=== PATIENT | male | born 1950 | race Caucasian/White ===

== ENCOUNTER 2016-12-07 06:45 | Outpatient (CLI) | payer MEDICARE, BC ==
[2016-12-07] VITALS (8 sets, daily range): BP systolic 98–137; BP diastolic 55–78
[~2016-12-07] VITALS: Ht 182.9 cm; Wt 117.5 kg
[~2016-12-07 06:45] MED LIST: AMLO10TA2 PO; BYSTOLIC10 MG PO; COLC0.6T34 PO; DEXL60CA PO; LOSA1TAB17 PO; RIVA20TA2 PO; SILD100T PO; TEST5GEL TP; TRAM50TA PO
[2016-12-07] MEDS ORDERED: FOLI1TAB16 PO (07:16)
[2016-12-07 07:37] LABS: BASO # 0.1 x10^3/uL (0.0-0.2); BASO % 1 % (0-3); EOS % 3 % (0-3); HEMATOCRIT 46.7 % (39.0-53.0); HEMOGLOBIN 15.4 g/dL (13.0-17.5); LYMPH # 1.7 x10^3/uL (1.0-4.8); LYMPH % 22 % (24-48); MEAN CORPUSCULAR HEMOGLOBIN 32 pg (25-35); MEAN CORPUSCULAR HGB CONC 33 g/dL (31-37); MEAN CORPUSCULAR VOLUME 98 fL (79-100); MONO % 9 % (0-9); NEUT % 65 % (31-73); PLATELET COUNT 268 x10^3/uL (140-400); RED BLOOD COUNT 4.79 x10^6/uL (4.30-5.70); RED CELL DISTRIBUTION WIDTH 14.4 % (11.5-14.5); WHITE BLOOD COUNT 7.9 x10^3/uL (4.0-11.0)
[2016-12-07 07:42] LABS: INR 1.1 (0.8-1.1); PROTHROMBIN TIME PATIENT 13.1 SEC (11.7-14.0)
[2016-12-07] MEDS ORDERED: LIDOCAINE 1%/EPI 1:100,000 20 ML VIAL. ONE (08:05)
[2016-12-07] MEDS ORDERED: VANCOMYCIN 1GM IVPB FOR OMNI 250 ML ONE (08:05)
[2016-12-07] MEDS ORDERED: HEPARIN PF 500 UNIT/5 ML DISP.SYRIN. IV ONE ×2 (08:05→09:00)
[2016-12-07] MEDS ORDERED: FENTANYL PF 250 MCG/5 ML VIAL. ONE (08:23)
[2016-12-07] MEDS ORDERED: MIDAZOLAM HCL/PF 5 MG/5 ML VIAL ONE (08:23)
[2016-12-07] MEDS ORDERED: CEFAZOLIN 1GM IVPB FOR OMNI 50 ML IV ONE ×2 (08:24→09:00)
[2016-12-07] MEDS ORDERED: MIDAZOLAM HCL/PF 5 MG/5 ML VIAL IV ONE (09:00)
[2016-12-07] MEDS ORDERED: VANCOMYCIN 1GM IVPB FOR OMNI 250 ML IRR ONE (09:00)
[2016-12-07] MEDS ORDERED: LIDOCAINE 1%/EPI 1:100,000 20 ML VIAL. IJ ONE (09:00)
[2016-12-07] MEDS ORDERED: FENTANYL PF 250 MCG/5 ML VIAL. IV ONE (09:00)
--- NOTE | 2016-12-07 09:07 | PDOC ---
MODERATE SEDATION ASSESSMENT RISKS/ALTERNATIVES Risks/Alternatives Risks and alternatives of this type of sedation and procedure discussed with: RISK/ALTERNATIVES: Patient H & P ON CHART H & P H & P on chart and reviewed for co-morbid conditions and appropriate labs. H&P ON CHART: Yes STATUS PREG STATUS ASSESSED: N/A MEDS/ALLERGIES REVIEWED Meds/Allergies Reviewed Medications and Allergies including time and route of recently administered narcotics and sedatives. MEDS/ALLERGIES REVIEWED: Yes ASA RATING ASA RATING: III AIRWAY ASSESSMENT Airway Assessment Airway patency, oral function limitations, presence of caps, crowns, dentures, partials, and ability to extend neck assessed. AIRWAY ASSESSMENT: Yes MALLAMPATI SCORE MALLAMPATI SCORE: II PRE-SEDATION ASSESSMENT PRE-SEDATION ASSESSMENT: Yes VICKIE LAM MD Dec 07, 2016 09:07
--- NOTE | 2016-12-07 09:09 | PDOC1 ---
History and Physical Date of Procedure Date of Admission 12/07/16 Procedure Procedure Image guided Power Port insertion Indication Indication Lung cancer---Power Port requested for chemotx Past Medical History Past Medical History See Nursing Pre Procedure PMH Past Surgical History Past Surgical History See Nursing Pre Procedure PSH Current Medications Current Medications Current Medications Heparin Sodium (Porcine) (Hep Lock Adult) 500 unit STK-MED ONCE IV ; Start 12/07 at 08:05; Stop 12/07/16 at 08:06; Status DC Lidocaine/ Epinephrine 20 ml 20 ml STK-MED ONCE .ROUTE ; Start 12/07/16 at 08:05 ; Stop 12/07/16 at 08:06; Status DC Heparin Sodium/ Sodium Chloride 500 ml @ As Directed STK-MED ONCE .ROUTE ; Start 12/07/16 at 08:05; Stop 12/07/16 at 08:06; Status DC Vancomycin HCl 250 ml @ As Directed STK-MED ONCE .ROUTE ; Start 12/07/16 at 08: 05; Stop 12/07/16 at 08:06; Status DC Midazolam HCl (Versed) 5 mg STK-MED ONCE .ROUTE ; Start 12/07/16 at 08:23; Stop 12/07/16 at 08:24; Status DC Fentanyl Citrate 250 mcg 250 mcg STK-MED ONCE .ROUTE ; Start 12/07/16 at 08:23; Stop 12/07/16 at 08:24; Status DC Cefazolin Sodium (Ancef 1gm Ivpb For Omni) 50 ml @ As Directed STK-MED ONCE IV ; Start 12/07/16 at 08:24; Stop 12/07/16 at 08:25; Status DC Heparin Sodium/ Sodium Chloride 1,000 unit 1X ONCE IART ; Start 12/07/16 at 09: 00; Stop 12/07/16 at 09:01; Status DC Midazolam HCl (Versed) 2 mg 1X ONCE IV ; Start 12/07/16 at 09:00; Stop at 09:01; Status DC Fentanyl Citrate 100 mcg 100 mcg 1X ONCE IV ; Start 12/07/16 at 09:00; Stop 11/11 at 09:01; Status DC Cefazolin Sodium 50 ml @ 100 mls/hr 1X ONCE IV ; Start 12/07/16 at 09:00; Stop 12/07/16 at 09:29 Vancomycin HCl 250 ml @ 250 mls/hr 1X ONCE IRR ; Start 12/07/16 at 09:00; Stop 12/07/16 at 09:59 Heparin Sodium (Porcine) (Hep Lock Adult) 500 unit 1X ONCE IV ; Start 12/07/16 at 09:00; Stop 12/07/16 at 09:01; Status DC Lidocaine/ Epinephrine (Xylocaine 1%-Epi 1:100,000) 13 ml 1X ONCE IJ ; Start at 09:00; Stop 12/07/16 at 09:01; Status DC Active Scripts Active Reported Folic Acid 1 Mg Tablet 1 Mg PO DAILY Androgel (Testosterone) 5 Gm Gel.packet 1 Packet TP DAILY Viagra (Sildenafil Citrate) 100 Mg Tablet 100 Mg PO ONCE PRN Xarelto (Rivaroxaban) 20 Mg Tablet 20 Mg PO DAILY Bystolic (Nebivolol) 10 Mg Tablet 10 Mg PO DAILY Losartan-Hctz 100-25 Mg Tab (Losartan/Hydrochlorothiazide) 1 Each Tablet 1 Each PO DAILY Dexilant (Dexlansoprazole) 60 Mg Pedro.mp 60 Mg PO DAILY Colcrys (Colchicine) 0.6 Mg Tablet 0.6 Mg PO PRN Amlodipine Besylate 10 Mg Tablet 10 Mg PO DAILY Allergies Allergies: Coded Allergies: No Known Drug Allergies (Unverified , 04/21/16) Physical Exam Vital Signs Vital Signs Date Time Temp Pulse Resp B/P Pulse Ox O2 Delivery O2 Flow Rate FiO2 12/07/16 07:44 97.6 69 16 137/67 96 Room Air 97.6 Lungs: Clear to auscultation Heart: Other (Irregularly irregular rate and rhythm, c/w afib) Psych/Mental Status: Mental status NL Assessment Assessment Lung cancer---needs chemotx. Problems: Plan Plan Image guided Power Port insertion. VICKIE LAM MD Dec 07, 2016 09:09
--- NOTE | 2016-12-07 09:12 | PDOC ---
Exam Wildlife And Game Protector Wildlife And Game Protector Nazario Diffuser Operator Diffuser Operator Mary Ellen Tucker Pre-Procedure Diagnosis Pre-Procedure Diagnosis Lung cancer---chemotx required Post-Procedure Diagnosis Post-Procedure Diagnosis Same Procedure Performed Procedure Performed Image guided Power Port insertion Type of Anesthesia Type of Anesthesia Local + Mod sedation Estimated Blood Loss EBL: Minimal Drain/Tubes Drains/Tubes Right IJ 8F tunneled Power Port Condition of Patient Condition of Patient Stable. No apparent complication. Disposition Disposition Home from [facility] post recovery, if no problems. F/u with Dr Daley. OK to use Power Port. Full report to follow. VICKIE LAM MD Dec 07, 2016 09:11
--- NOTE | 2016-12-08 07:16 | RAD ---
Ultrasound and fluoroscopy guided right IJ power port insertion Indication: 58-year-old male with lung cancer. Power port insertion has been requested by oncology for chemotherapy. Fluoroscopy time: 2.3 minutes Kerma-area product: 9 Gycm2 Moderate sedation: 36 minutes moderate sedation was provided utilizing a total of 2 mg Versed and 100 mcg fentanyl, IV. The patient was appropriately monitored by a qualified independent observer throughout the course of moderate sedation. Antibiotic: A single dose of Ancef was administered within 1 hour of the procedure start time. Consent: The procedure was explained in its entirety to the patient and/or the patient's designated inside sales account representative by a member of the treatment team. This included a discussion of risks and benefits and commonly accepted alternatives to the procedure, as well as expected consequences of no treatment at all. Discussion of risks included, but was not limited to, those that are most frequent and those that are rare, but possibly severe or life-threatening, as well as the possibility of unforeseen complications. Sterility: All elements of maximal sterile barrier technique, including the use of a cap, mask, sterile gown, sterile gloves, large sterile sheet, appropriate hand hygiene, and 2% chlorhexidine for cutaneous antisepsis (or acceptable alternative antiseptic per current guidelines) were utilized. Procedure: Informed consent was obtained from the patient. He was placed supine on the angiography table. Preliminary ultrasound examination of right neck revealed wide patency of right internal jugular vein, which was documented with a single hard copy ultrasound image. Right neck and upper chest were then prepped and draped in the usual sterile fashion, utilizing all elements of maximal sterile barrier technique, as described above. Moderate sedation was provided with IV Versed and fentanyl. 1 g Ancef was given IV, prophylactically. Using aseptic technique and local anesthesia, a small skin incision was made lateral to right internal jugular vein, just above clavicle. Using aseptic technique, local anesthesia, direct ultrasound guidance, and the micropuncture system, successful percutaneous entry was achieved into right internal jugular vein. The right IJ venostomy tract was then dilated and the 8 Ghanaian catheter from a Bard power port system was easily advanced centrally through an 8.5 Ghanaian peel-away sheath, and was positioned with this tip at the level of upper right atrium utilizing fluoroscopic guidance. A skin site suitable for placement of the power port body was then selected and marked along upper anterior aspect of right chest. Using aseptic technique and local anesthesia, a horizontally oriented skin incision was made in this location. A subcutaneous chest wall pocket was then created and was packed with vancomycin soaked gauze. A subcutaneous tunnel was then fashioned between the chest wall pocket and the initial supraclavicular incision. The 8 Ghanaian power port catheter was then pulled through the subcutaneous tunnel from superior to inferior, utilizing the tunneling device provided. The catheter was then trimmed to an appropriate length and was connected to the power port body, which had been previously flushed with, and soaked in, vancomycin solution. The vancomycin soaked gauze was then removed from the chest wall pocket, which was then copiously irrigated with vancomycin solution. The power port body was then easily introduced into the chest wall pocket and was secured in place utilizing two 2-0 Vicryl sutures. The power port was then accessed utilizing a Ritchie needle, was documented to flush and aspirate normally, and was packed with heparinized saline. The chest incision was then closed with 2-0 Vicryl, 4-0 Vicryl, Steri-Strips, and sterile dressing. The small supraclavicular incision was closed with 4-0 Vicryl, Steri-Strips, and sterile dressing. Patient tolerated the procedure well without apparent complication. Satisfactory position of the power port was confirmed with a single fluoroscopic spot image. Impression: Successful, uneventful ultrasound and fluoroscopy guided placement of right IJ 8 Ghanaian tunneled power port, as described.
== END 2016-12-07 11:15 | disposition home or self-care (01) ==
LOC: INTRAD 06:45
PROVIDERS: ATTEND Internal Medicine Hematology & Oncology
DX: C34.90 Malignant neoplasm of unspecified part of unspecified bronchus or lung (principal); Z51.11 Encounter for antineoplastic chemotherapy; E78.00 Pure hypercholesterolemia, unspecified; I10 Essential (primary) hypertension; I48.91 Unspecified atrial fibrillation; F17.200 Nicotine dependence, unspecified, uncomplicated; C85.90 Non-Hodgkin lymphoma, unspecified, unspecified site; Z51.0 Encounter for antineoplastic radiation therapy
CPT/HCPCS: 36415; 36561; 76937; 77001; 85027; 85610; C1751; C1892; J0690; J2250; J3010; J3370; J3490

== ENCOUNTER → 2017-01-24 | Outpatient (CLI) | payer MEDICARE, BC ==
[2016-12-07 11:00] VITALS: BP 120/78
[~2017-01-24] MED LIST changes: +FOLI1TAB16 PO; +GADOBUTROL 10 MMOL/10 ML VIAL IV ONE; +HEPARIN PF 500 UNIT/5 ML DISP.SYRIN. IV ONE
--- NOTE | 2017-01-24 12:28 | RAD ---
PROCEDURE MRI brain without and with contrast. HISTORY Metastasis check, lung cancer TECHNIQUE Multiplanar, multi sequential pre and post contrast MR imaging was performed of the brain. Contrast: 10 cc Gadavist. COMPARISON None FINDINGS No abnormal intracranial enhancement is identified. There is no intra-axial mass effect, midline shift, extra-axial fluid collection. Ventricles, sulci, cisterns are within normal limits in size and configuration. There are multiple scattered foci of nonenhancing T2 and FLAIR hyperintense signal abnormality of the supratentorial white matter in a bilateral distribution greatest of the frontal lobes and to a lesser degree of the parietal temporal lobes. There has been lens surgery bilaterally. There is patchy mild ethmoid air cell and frontal sinus as well as sphenoid sinus and left greater than right maxillary sinus mucosal thickening. There is minimal fluid signal intensity of the mastoid air cells bilaterally. IMPRESSION 1. No abnormal intracranial enhancement is identified. Scattered T2 and FLAIR hyperintense signal abnormality of the supratentorial white matter bilaterally is nonspecific, most commonly due to chronic microvascular disease in a patient this age. Electronically signed by: Camilo Morales MD (Jan 24, 2017 12:26:27)
== END | disposition home or self-care (01) ==
LOC: MRI 09:40
PROVIDERS: ATTEND Internal Medicine Hematology & Oncology
DX: C34.92 Malignant neoplasm of unspecified part of left bronchus or lung (principal)
CPT/HCPCS: 70553; A9585

== ENCOUNTER → 2018-08-20 | Outpatient (CLI) | payer MEDICARE, BC ==
[2016-12-07 11:00] VITALS: BP 120/78
[~2018-08-20] MED LIST changes: +ALLO100T PO; -AMLO10TA2 PO; +AMLO10TA6 PO; +CELE200C PO; +CHOL10003 PO; +DENO120V SQ; -DEXL60CA PO; +DEXL60CA2 PO; -HEPARIN PF 500 UNIT/5 ML DISP.SYRIN. IV ONE; +HYDR1TAB12 PO; +HYDR2TAB31 PO; +LOSA100T7 PO; -LOSA1TAB17 PO; +LOSA1TAB22 PO
--- NOTE | 2018-08-20 12:13 | RAD ---
MRI of the Brain without and with Contrast 08/20/2018 Clinical History: History of metastatic lung cancer. Technique: Unenhanced T1-weighted sagittal and axial and FLAIR, T2-weighted, gradient echo and diffusion-weighted axial images of the brain were obtained. After the intravenous administration of 10 cc of Gadavist, enhanced T1-weighted axial, sagittal and coronal images of the brain were obtained. Findings: There is generalized parenchymal atrophy. Patchy, confluent and multiple focal areas of abnormally increased signal intensity are seen within the periventricular and subcortical white matter of both cerebral hemispheres on the FLAIR and T2-weighted images consistent with areas of small vessel ischemic disease. A 4 mm enhancing nodule is seen involving the lateral aspect of the left cerebral hemisphere. A 2 mm enhancing nodule is seen involving the medial aspect of the right parietal lobe. They are concerning for metastasis. There is mild surrounding edema surrounding the lesion in the left cerebellum. No significant mass effect is seen. No additional enhancing lesion is noted. There is no MRI evidence of acute ischemia/infarction. No extra-axial fluid collection is seen. Mild mucosal thickening in seen scattered throughout the ethmoid air cells bilaterally. There are small to moderate-sized bilateral mastoid effusions, left greater than right. IMPRESSION: Small areas of abnormal contrast enhancement are seen involving the left cerebellar hemisphere and the right parietal lobe concerning for brain metastasis as outlined above. Electronically signed by: Santino Osman MD (08/20/2018 12:10 PM) [id number]
== END | disposition home or self-care (01) ==
LOC: MRI 10:01
PROVIDERS: ATTEND Internal Medicine Hematology & Oncology
DX: C34.12 Malignant neoplasm of upper lobe, left bronchus or lung (principal); H74.8X3 Other specified disorders of middle ear and mastoid, bilateral; G93.89 Other specified disorders of brain; I10 Essential (primary) hypertension; E78.00 Pure hypercholesterolemia, unspecified; I48.91 Unspecified atrial fibrillation; Z87.891 Personal history of nicotine dependence
CPT/HCPCS: 70553; A9585